=== PATIENT | male | born 1990 | race African-American/Black ===

== ENCOUNTER 2019-02-19 13:10 | Emergency (ER) | payer MEDICAID ==
[~2019-02-19] VITALS: Ht 180.3 cm; Wt 82.0 kg
[2019-02-19] MEDS ORDERED: SODIUM CHLORIDE 0.9% 1,000 ML IV ONE (14:24)
[2019-02-19 14:49] LABS: BASOPHILS % 0.4 % (0.0-2.0); EOSINOPHILS % 0.5 % (0.0-5.0); HEMATOCRIT. 38.3 % (42.0-52.0); HEMOGLOBIN. 12.7 g/dL (14.0-18.0); LYMPHOCYTES % 30.2 % (20.0-50.0); MEAN CORPUSCULAR HEMOGLOBIN 28.6 pg (28.0-32.0); MEAN CORPUSCULAR VOLUME 86.5 fL (80.0-94.0); MEAN PLATELET VOLUME 7.9 fl (7.4-10.4); MONOCYTES % 7.7 % (2.0-8.0); NEUTROPHILS % 61.2 % (40.0-76.0); PLATELET 221 x1000/uL (130-400); RED BLOOD CELL COUNT 4.42 mill/uL (4.7-6.1); RED CELL DISTRIBUTION WIDTH 15.2 % (11.6-14.6)
[2019-02-19 14:55] LABS: CHLORIDE 109 mEq/L (98-107)
[2019-02-19 14:59] LABS: ETHANOL BLOOD < 10 mg/dL
[2019-02-19 15:04] LABS: CREATINE KINASE 134 IU/L (39-308)
[2019-02-19 17:50] VITALS: BP 110/80
== END 2019-02-19 18:28 | disposition home or self-care (01) ==
LOC: ER 13:23
DX: R55 Syncope and collapse (principal); R41.82 Altered mental status, unspecified; F20.9 Schizophrenia, unspecified
CPT/HCPCS: 36415; 70450; 80053; 80307; 80320; 80329; 82550; 83605; 84484; 85025; 96360; 99284; J7030; G0480

== ENCOUNTER 2019-02-19 19:09 | Emergency (ER) | payer MEDICAID ==
[~2019-02-19] VITALS: Ht 177.8 cm; Wt 78.0 kg
[2019-02-19 22:20] VITALS: BP 105/82
== END 2019-02-19 22:32 | disposition home or self-care (01) ==
LOC: ER 19:09
DX: F19.129 Other psychoactive substance abuse with intoxication, unspecified (principal); R40.0 Somnolence
CPT/HCPCS: 82962; 93005; 99283; Z7610